=== PATIENT | female | born 1935 | race Caucasian/White ===

== ENCOUNTER → 2019-01-05 | Outpatient (CLI) | payer MEDICARE ==
--- NOTE | 2019-01-06 08:16 | MR ---
EXAMINATION TYPE: MR kidney wo/w con DATE OF EXAM: 01/05/2019 COMPARISON: Outside ultrasound November 20, 2018 reviewed on [facility] PACS station. HISTORY: Left renal masses (2) per order on outside ultrasound. CONTRAST: Standard multiplanar, multisequence MRI departmental protocol utilizing 9 mL intravenous Gadavist mis olinium contrast. FINDINGS: KIDNEYS: Some cortical thinning is present in the right kidney. There is simple appearing roughly 3 m m cyst upper pole level seen best coronal image 28. There are a few simple appearing central small pa rapelvic cysts and tiny cortical cyst measuring under 3 mm noted. No hydronephrosis or concerning barbara id or cystic renal mass noted. Mild perinephric fluid inferiorly laterally is present. Overall findin gs are consistent with product of chronic medical renal disease. Left kidney shows cortical thinning with inferolateral perinephric fluid, findings consistent with un derlying chronic medical renal disease. No hydronephrosis is present. There are few scattered simple appearing cysts throughout the left kidney measuring nearly up to 1.0 cm in size. Correlating with ul trasound there is abnormal ball-shaped partially exophytic solid mass posteriorly at mid to lower tra e level measuring 5.8 x 5.5 cm transversely axial image 17 x 5.3 cm craniocaudal dimension coronal im age 28 consistent with solid mass or renal cell carcinoma. No second mass or lesion of concern clearl y seen on MRI. Some prominent collateral vessels are suspected superior aspect of mass in the perinep hric fat of uncertain etiology or significance. There is patency of the bilateral renal veins draining into IVC. No adjacent adenopathy is present. OTHER: Cardiomegaly is present. No pleural or pericardial effusion is seen. There is occasional tiny subcentimeter thin-walled cyst scattered throughout the liver most prominent in the left hepatic lobe . The gallbladder, spleen, and pancreas are felt within normal limits. There is no suspicious biliary dilatation. Fullness of both adrenal glands shows diffuse signal dropout consistent with benign lipi d rich hyperplasia. There is no concerning abdominal fluid collection. There are diverticula in visua lized portion of the colon. Visualized osseous structures are intact. IMPRESSION: Confirmation of suspicious solid partially exophytic posterior enhancing 5.8 cm mass strongly suspici ous for renal cell carcinoma mid pole level left kidney. No second mass/neoplasm or obvious adenopath y noted.
== END | disposition home or self-care (01) ==
LOC: RADMRIMAIN 12:28
PROVIDERS: ATTEND Urology
DX: D41.02 Neoplasm of uncertain behavior of left kidney (principal)
CPT/HCPCS: 82565; 84520; 74183; 36415; A9585

== ENCOUNTER → 2019-02-02 | Outpatient (CLI) | payer MEDICARE ==
[2019-02-02 13:03] LABS: Basophils % (A) 0 %; Eosinophils # (A) 0.2 k/uL (0-0.7); Eosinophils % (A) 2 %; HCT 33.4 % (34.0-46.0); HGB 10.7 gm/dL (11.4-16.0); Lymphocytes # (A) 1.5 k/uL (1.0-4.8); Lymphocytes % (A) 17 %; MCH 28.2 pg (25.0-35.0); MCV 88.1 fL (80.0-100.0); Mean Platelet Volume 9.2; Monocytes # (A) 0.4 k/uL (0-1.0); Monocytes % (A) 5 %; Neutrophils # (A) 6.8 k/uL (1.3-7.7); Neutrophils % (A) 75 %; Platelet Count 167 k/uL (150-450); RBC 3.79 m/uL (3.80-5.40); WBC 9.1 k/uL (3.8-10.6)
[2019-02-02 13:06] LABS: INR 0.9 (<1.2); Partial Thromboplastin Time 22.5 sec (22.0-30.0); Prothrombin Time 9.5 sec (9.0-12.0)
[2019-02-02 13:13] LABS: Calcium 9.3 mg/dL (8.4-10.2); Potassium 5.2 mmol/L (3.5-5.1)
[2019-02-02 22:31] LABS: Hemoglobin A1C 6.2 % (4.0-6.0)
== END ==
LOC: LABPAT 11:33
PROVIDERS: ATTEND Urology
DX: E11.9 Type 2 diabetes mellitus without complications (principal); Z01.812 Encounter for preprocedural laboratory examination; D41.02 Neoplasm of uncertain behavior of left kidney; Z79.01 Long term (current) use of anticoagulants
CPT/HCPCS: 36415; 80048; 83036; 85025; 85610; 85730

== ENCOUNTER 2019-02-07 08:14 | Day surgery (SDC) | payer MEDICARE ==
[2019-02-07] MEDS ORDERED: ALPRAZolam 0.25 MG TAB PO ONE (08:16)
[2019-02-07 09:36] VITALS: TEMP 98.6
[2019-02-07 09:47] LABS: Mean Platelet Volume 10.3; Platelet Count 119 k/uL (150-450)
[2019-02-07 09:52] LABS: Prothrombin Time 10.3 sec (9.0-12.0)
[2019-02-07 10:58] VITALS: RESP 18
--- NOTE | 2019-02-07 11:30 | CT ---
EXAMINATION TYPE: CT biopsy renal LT DATE OF EXAM: 02/07/2019 HISTORY: Left renal mass COMPARISON: MR kidney 01/05/2019 Maximal barrier technique was utilized. The skin overlying a suitable path to the lesion was localiz ed using CT and the overlying skin was prepped and draped. Lidocaine used for local anesthesia. A s kin radhames made with a scalpel. Using CT guidance, access was gained to the lesion with a 18-gauge nee dle through a 17-gauge guide. Core specimen submitted to cytology. Single pass performed. Following the procedure no immediate complications. The patient is discharged in stable condition to [facility]. Hemostasis achieved. IMPRESSION: SUCCESSFUL CT GUIDED LEFT RENAL MASS CORE BIOPSY. PATHOLOGY PENDING. THIS PROCEDURE WAS PERFORMED B Y THE UNDERSIGNED.
[2019-02-07 12:59] VITALS: BP 119/67; PULSE 114
== END 2019-02-07 15:00 | disposition home or self-care (01) ==
LOC: RADPROMAIN 08:14 → 1SOBS 09:55 → RADPROMAIN 15:00
PROVIDERS: ATTEND Urology
DX: C64.2 Malignant neoplasm of left kidney, except renal pelvis (principal)
CPT/HCPCS: 77012; 85049; 85610; 88305